=== PATIENT | male | born 1995 | race Caucasian/White ===

== ENCOUNTER 2016-09-09 12:23 | Emergency (ER) | payer SELFPAY ==
[2016-09-09 12:29] VITALS: BP 134/89; PULSE 98; RESP 18; TEMP 98.6; O2SAT 97
--- NOTE | 2016-09-09 12:38 | EDPHY ---
H & P Stated Complaint: foreign debris in eyes doing construction today--metal? wood? Time Seen by Provider: 09/09/16 12:36 - Personal History Current Tetanus/Diphtheria Vaccine: Unsure Current Tetanus Diphtheria and Acellular Pertussis (TDAP): Unsure - Medical/Surgical History Hx Asthma: No Hx Chronic Respiratory Disease: No Hx Diabetes: No Hx Cardiac Disease: No Hx Renal Disease: No Hx Cirrhosis: No Hx Alcoholism: No Hx HIV/AIDS: No Hx Splenectomy or Spleen Trauma: No Other PMH: htn -cant afford meds - Social History Smoking Status: Former smoker Constitutional: Initial Vital Signs Temperature (C) 37.0 C 09/09/16 12:26 Heart Rate 98 09/09/16 12:26 Respiratory Rate 18 09/09/16 12:26 Blood Pressure 134/89 H 09/09/16 12:26 O2 Sat (%) 97 09/09/16 12:26 O2 Delivery Mode Room Air Allergies/Adverse Reactions: No Known Allergies Allergy (Unverified 09/09/16 12:25) Home Medications: Medication Instructions Recorded NK [No Known Home Meds] 09/09/16 Medical Decision Making ED Course/Re-evaluation: CHIEF COMPLAINT: Possible foreign bodies in eye. HISTORY OF PRESENT ILLNESS: The patient is a 20-year-old male who presents with possible foreign bodies in his right eye. He was cutting wood this morning when he hit a nail and had wood splinters and possible metal chunks thrown into his eye. He had immediate pain that has since started to subside. He was able to wash out his eye with water. He denies other complaints. He does not wear vision correction. REVIEW OF SYSTEMS: A 10 point review of systems was performed and is negative with the exception of the elements mentioned in the history of present illness. PHYSICAL EXAM: HR, BP, O2 Sat, RR. Temp noted Visual Acuity: Noted from Nurse's notes. Pupils: [PERRLA, EOMI, no nystagmus, no trauma, no injection. Debris over pupil at 6 o'clock position.] Lids: [No edema or swelling] Skin: [No proptosis, no periorbital erythema or swelling, no vesicles] Conjunctivae: [Not injected, not icteric, no discharge] Cornea: [Exam with slit lamp and fluorescein shows small corneal abrasion over pupil.] Anterior chamber: [Normal, no hyphema or hypopyon] Posterior Chamber: [No papilledema or hemorrhages.] Past medical history: Denies. Past surgical history: Denies. Family history: N/A. Social history: Here alone. DIFFERENTIAL DIAGNOSIS: The differential diagnosis includes but is not limited to corneal abrasion, hyphema, foreign body. MEDICAL DECISION MAKIN-year-old male presents with eye discomfort secondary to sawing wood this morning. He was wearing safety glasses but when he hit a nail he felt some debris hit his eye. He had immediate discomfort. He washed it out with water and the pain has been slowly declining. I performed a slit-lamp exam with fluorescein that showed a small corneal abrasion over the pupil. I saw some debris over the pupil at the 6 o'clock position that he was able to blink away. I will give him Ocuflox for the abrasion and he will follow up with ophthalmology. He is comfortable with this plan. Departure - Departure Disposition: Home, Routine, Self-Care Clinical Impression: Corneal abrasion Qualifiers: Encounter type: initial encounter Laterality: right Qualified Code(s): S05.01XA - Injury of conjunctiva and corneal abrasion without foreign body, right eye, initial encounter Condition: Good Instructions: Corneal Abrasion (ED) Additional Instructions: Use the eye drops as prescribed. Call Dr. Campa, ophthalmology, on Sunday to set up a follow up appointment. Return to the emergency department for any serious worsening of condition. Referrals: Donald Campa MD [Medical Doctor] - As per Instructions Report Scribed for: Rigo Sánchez Report Scribed by: Wicho Garcia Date of Report: 09/09/16 Time of Report: 12:46
[2016-09-09] MEDS ORDERED: FLUORESCEIN SODIUM 1 MG STRIP OP ONE (12:40)
[2016-09-09] MEDS ORDERED: PROPARACAINE 0.5% 15 ML OPHT DROP ONE (12:40)
[2016-09-09] MEDS ORDERED: OFLOXACIN 0.3% SOLN PREPACK OPHT.BTL TAKEHOME ONE ×2 (12:55→13:01)
== END 2016-09-09 13:14 | disposition home or self-care (01) ==
DX: S05.01XA Injury of conjunctiva and corneal abrasion without foreign body, right eye, initial encounter (principal); Z87.891 Personal history of nicotine dependence; X58.XXXA Exposure to other specified factors, initial encounter